=== PATIENT | female | born 1965 | race Caucasian/White ===

== ENCOUNTER → 2021-06-02 | Outpatient (CLI) | payer OTHER ==
--- NOTE | 2021-06-02 15:30 | RAD ---
EXAM: DUAL ENERGY X-RAY ABSORPTIOMETRY (DEXA). HISTORY: Postmenopausal screening. FINDINGS: The lowest measured T-score is -1.5 in the right femoral neck, based on a bone mineral dens ity of 0.824 g/cm^2. Refer to the worksheets for full detail. No comparison examinations are available. IMPRESSION: Low bone mass. Bone mineral density yields a T-score between -1.0 and -2.5. Fracture risk is increase d. FRAX was not calculated. METHODOLOGY: Dual energy x-ray absorptiometry was performed to measure bone mineral density. The foll owing analysis is based on the 2019 Official Positions of the International Society for Clinical Dens itometry: Measurements of the hips and the average of L1-L4 are preferred. When the spine and/or hip cannot be feasibly measured or interpreted, or in the setting of hyperparathyroidism, distal radial bone minera l density may be measured. The lumbar spine T-score is based on the average bone mineral density of L1-L4. In the setting of art ifact or anatomic abnormality, some lumbar levels may be excluded, and the remaining levels used for calculation. A single lumbar level is not used for diagnosis, and if only a single level is available for assessment, another anatomic site will be used to assign a diagnosis. The hip T-score is based on the bone mineral density measurement of the femoral neck or total proxima l femur of either side, whichever is lowest. Bilateral mean values are not used for diagnosis. The forearm T-score is derived from 33% of the distal radius of the nondominant forearm. For postmenopausal and perimenopausal women, and men age 50 or older, of all ethnic groups, T-scores are calculated through comparison of the current measurement with the NHANES III database standard fo r females aged 20-29 years. The lowest T-score of the evaluated anatomic sites is used to a ssign a diagnosis based on the World Health Organization densitometric classification. In premenopausal females and males younger than age 50, a Z-score is calculated based on population s pecific reference data for patient sex and self-reported ethnicity. Electronically signed by: Miguel Hammond MD (06/02/2021 3:28 PM) [facility]
== END ==
LOC: DXRAD 13:08
PROVIDERS: ATTEND Obstetrics & Gynecology
DX: N95.1 Menopausal and female climacteric states (principal); M85.80 Other specified disorders of bone density and structure, unspecified site
CPT/HCPCS: 77080

== ENCOUNTER → 2021-07-23 | Outpatient (CLI) | payer OTHER ==
[2021-07-23 14:19] LABS: CALCIUM 9.3 mg/dL (8.5-10.1); GFR 57.8
== END ==
LOC: LAB 13:41
PROVIDERS: ATTEND Anesthesiology
DX: Z01.812 Encounter for preprocedural laboratory examination (principal); R10.2 Pelvic and perineal pain
CPT/HCPCS: 36415; 80048

== ENCOUNTER → 2022-03-25 | Outpatient (CLI) | payer OTHER ==
[2022-03-25 18:43] LABS: FREE T4 0.9 ng/dL (0.76-1.46); THYROID STIM HORMONE (TSH) 1.45 uIU/mL (0.358-3.740)
== END ==
LOC: LAB 10:32
PROVIDERS: ATTEND Internal Medicine Endocrinology, Diabetes & Metabolism
DX: E03.9 Hypothyroidism, unspecified (principal)
CPT/HCPCS: 84439; 84443